=== PATIENT | male | born 1990 | race Hispanic/Latino ===

== ENCOUNTER 2019-04-09 07:19 | Emergency (ER) | payer OTHER ==
[~2019-04-09] VITALS: Ht 167.6 cm; Wt 77.3 kg
[2019-04-09] MEDS ORDERED: NON-325T5 PO (07:28)
[2019-04-09] MEDS ORDERED: KETOROLAC 30 MG/ML VIAL (J1885) IV ONE (07:30)
[2019-04-09] MEDS ORDERED: NS 1,000 ML IV ONE (07:30)
[2019-04-09 08:05] LABS: BASO % 0.4 % (0.0-1.0); EOS # 0.1 10^3/uL (0.0-0.50); EOS % 0.8 % (0.0-3.0); HEMATOCRIT 46.9 % (42.0-52.0); HEMOGLOBIN 16.2 g/dl (13.5-17.5); LYMPH # 2.2 10^3/uL (1.5-6.5); LYMPH % 30.8 % (24.0-44.0); MEAN CORPUSCULAR HEMOGLOBIN 28.7 pg (27.0-33.0); MEAN CORPUSCULAR HGB CONC 34.5 g/dl (32.0-36.5); MONO # 0.4 10^3/uL (0.0-0.8); MONO % 6.1 % (0.0-5.0); NEUTROPHILS # 4.4 10^3/uL (1.8-7.7); NEUTROPHILS % 61.6 % (36.0-66.0); PLATELET COUNT, AUTOMATED 358 10^3/uL (150-450); RED BLOOD COUNT 5.65 10^6/uL (4.30-6.10); WHITE BLOOD COUNT 7.2 10^3/uL (4.0-10.0)
[2019-04-09 08:20] LABS: BLOOD UREA NITROGEN 15 MG/DL (7-18); C REACTIVE PROTEIN QUANTITATIV < 0.30 MG/DL (0.00-0.30); CALCIUM LEVEL 8.7 MG/DL (8.5-10.1); CARBON DIOXIDE LEVEL 25 MEQ/L (21-32); CHLORIDE LEVEL 107 MEQ/L (98-107); CREATININE FOR GFR 0.99 MG/DL (0.70-1.30); GLOMERULAR FILTRATION RATE > 60.0 (>60); GLUCOSE, FASTING 111 MG/DL (70-100); POTASSIUM SERUM 3.8 MEQ/L (3.5-5.1); SODIUM LEVEL 137 MEQ/L (136-145)
[2019-04-09 08:22] LABS: ERYTHROCYTE SEDIMENTATION RATE 5 mm/hr (0-15)
[2019-04-09] MEDS ORDERED: diphenhydrAMINE INJ 50MG/ML VIAL (J1200) IV STA (08:31)
[2019-04-09] MEDS ORDERED: PROCHLORPERAZINE 10 MG/2 ML VIAL (J0780) IV PRN (08:45)
[2019-04-09 09:01] LABS: APPEARANCE, URINE CLEAR (CLEAR); BACTERIA, URINE AUTO NEGATIVE (NEGATIVE); BILIRUBIN, URINE AUTO NEGATIVE (NEGATIVE); BLOOD, URINE BLOOD NEGATIVE (NEGATIVE); COLOR, URINE YELLOW (YELLOW); GLUCOSE, URINE (UA) AUTO NEGATIVE (NEGATIVE); KETONE, URINE AUTO NEGATIVE (NEGATIVE); LEUKOCYTE ESTERASE, URINE AUTO NEGATIVE (NEGATIVE); MUCUS, URINE SMALL (NEGATIVE); NITRITE, URINE AUTO NEGATIVE (NEGATIVE); PROTEIN, URINE AUTO NEGATIVE (NEGATIVE); RBC, URINE AUTO 1 /HPF (0-3); SPECIFIC GRAVITY URINE AUTO 1.021 (1.002-1.035); SQUAMOUS EPITHELIAL CELL UR AU 0 /HPF (0-6); UROBILINOGEN, URINE AUTO 0.2 mg/dL (0.0-2.0); WBC, URINE AUTO 1 /HPF (0-3)
--- NOTE | 2019-04-09 09:02 | REP ---
CT of the brain without IV contrast: There is no hemorrhage. There is no edema, mass effect or midline shift. The cortical stripe is unremarkable. Ventricles are normal size. The there is mucosal thickening in a few of the ethmoid sinus air cells, compatible with sinusitis. Impression: There is no hemorrhage, acute infarct or mass. Mucosal thickening in a few of the ethmoid sinus air cells. Electronically Signed by Eliceo Macias MD 04/09/2019 08:53 A
[2019-04-09] MEDS ORDERED: AMOXICILLIN 500 MG CAP PO ONE (09:45)
[2019-04-09] MEDS ORDERED: dexameTHASONE 20 MG/5 ML VIAL (J1100) IV ONE (09:45)
[2019-04-09] MEDS ORDERED: MEDR4PAK PO (10:16)
[2019-04-09] MEDS ORDERED: AMOX500C PO (10:16)
[2019-04-09 10:30] VITALS: BP 134/56
== END 2019-04-09 10:34 | disposition home or self-care (01) ==
LOC: M ED 07:19 → EDBD 07:19 → M ED 10:34
DX: J01.20 Acute ethmoidal sinusitis, unspecified (principal); R51 Headache
CPT/HCPCS: 36415; 70450; 80048; 81001; 85025; 85652; 86140; 96361; 96374; 96375; 99284; J0780; J1100; J1200; J1885